=== PATIENT | female | born 1995 | race Caucasian/White ===

== ENCOUNTER 2020-05-13 08:01 | Inpatient (IN) | payer MEDICAID ==
[~2020-05-13] VITALS: Ht 154.9 cm; Wt 59.9 kg
[2020-05-13 10:26] LABS: BASOPHILS % 0.5 % (0.0-2.0); EOSINOPHILS % 0.3 % (0.0-5.0); HEMATOCRIT. 37.5 % (36.0-48.0); HEMOGLOBIN. 12.4 g/dL (12.0-16.0); LYMPHOCYTES % 17.2 % (20.0-50.0); MEAN CORPUSCULAR HEMOGLOBIN 28.4 pg (28.0-32.0); MEAN CORPUSCULAR VOLUME 85.5 fL (81.0-99.0); MEAN PLATELET VOLUME 9.7 fl (7.4-10.4); MONOCYTES % 4.7 % (2.0-8.0); NEUTROPHILS % 77.3 % (40.0-76.0); PLATELET 226 x1000/uL (130-400); RED BLOOD CELL COUNT 4.38 mill/uL (4.2-5.4)
[2020-05-13 10:30] LABS: CLARITY URINE CLEAR (CLEAR); COLOR URINE YELLOW (YELLOW); KETONES URINE NEGATIVE (NEGATIVE); LEUKOCYTE ESTERASE URINE TRACE (NEGATIVE); NITRITE URINE NEGATIVE (NEGATIVE); OCCULT BLOOD URINE TRACE (NEGATIVE); PROTEIN URINE 3+ (NEGATIVE); SPECIFIC GRAVITY URINE 1.022 (1.005-1.030)
[2020-05-13 10:33] LABS: CHLORIDE 110 mEq/L (98-107)
[2020-05-13 10:41] VITALS: BP 126/89
[2020-05-13 10:41] LABS: D-DIMER 3.8 mg/L FEU (<0.50); INR 1.4; PROTHROMBIN TIME 14.3 sec (9.6-11.0)
[2020-05-13] MEDS ORDERED: CARBOPROST TROMETHAMINE 250 MCG/ML AMPUL IM PRN (12:45)
[2020-05-13] MEDS ORDERED: METHYLERGONOVINE MALEATE 0.2 MG/ML IM PRN (12:45)
[2020-05-13] MEDS ORDERED: NALOXONE HCL 0.4 MG/ML 1ML VIAL IM PRN (12:45)
[2020-05-13] MEDS ORDERED: LIDOCAINE HCL 1% 20ML VIAL (Pyxis) INJ INFIL SCH (12:45)
[2020-05-13] MEDS ORDERED: MISOPROSTOL 200MCG TABLET VG SCH (12:45)
[2020-05-13] MEDS: LACTATED RINGERS 1,000 ML IV SCH ×3 (13:03→18:02)
[2020-05-13] MEDS: BUTORPHANOL TARTRATE 2 MG/ML VIAL IV PRN (13:09)
[2020-05-13] MEDS ORDERED: ROPIVACAINE HCL/PF EPIDURAL 200 ML EPI SCH (16:30)
[2020-05-13 19:44] LABS: HEPATITIS B SURFACE ANTIGEN NEGATIVE
[2020-05-14] MEDS: LACTATED RINGERS 1,000 ML IV SCH (01:17)
[2020-05-14] MEDS ORDERED: ACETAMINOPHEN 325MG TABLET PO NR (04:30)
[2020-05-14] MEDS: DEXT 5%/LR + PITOCIN 20UNITS/L 1,000 ML IV SCH ×2 (09:10→13:29)
[2020-05-14] MEDS: BUTORPHANOL TARTRATE 2 MG/ML VIAL IV PRN (12:44)
[2020-05-14] MEDS ORDERED: DIPHENHYDRAMINE 25MG CAPSULE PO PRN (13:45)
[2020-05-14] MEDS ORDERED: DEXT 5%/LR + PITOCIN 20UNITS/L 1,000 ML IV SCH (13:45)
[2020-05-14] MEDS ORDERED: BENZOCAINE/LANOLIN/ALOE VERA SPRAY TOP PRN (13:45)
[2020-05-14] MEDS ORDERED: OXYCODONE HCL/ACETAMINOPHEN 5/325MG TABLET PO PRN (13:45)
[2020-05-14] MEDS ORDERED: IBUPROFEN 400MG TABLET PO PRN (13:45)
[2020-05-14] MEDS ORDERED: GLYCERIN/WITCH HAZEL LEAF MEDICATED PAD TOP PRN (13:45)
[2020-05-14] MEDS ORDERED: MINERAL OIL 30ML BOTTLE TOP PRN (13:45)
[2020-05-14] MEDS: IBUPROFEN 800MG TABLET PO PRN ×2 (14:04→23:10)
[2020-05-14 15:00] VITALS: BP 112/80
[2020-05-14 16:00] VITALS: BP 119/78
[2020-05-14 19:30] VITALS: BP 124/86
[2020-05-14 21:12] LABS: *AMPHETAMINES SCREEN URINE NEGATIVE (NEGATIVE); *BARBITURATES SCREEN URINE NEGATIVE (NEGATIVE); *BENZODIAZEPINES SCREEN URINE NEGATIVE (NEGATIVE); *COCAINE SCREEN URINE NEGATIVE (NEGATIVE); METHADONE URINE SCREEN NEGATIVE (NEGATIVE)
[2020-05-14 21:13] LABS: CANNABINOID URINE SCREEN NEGATIVE (NEGATIVE); OPIATES URINE SCREEN NEGATIVE (NEGATIVE); PHENCYCLIDINE URINE SCREEN NEGATIVE (NEGATIVE)
[2020-05-14] MEDS: DOCUSATE SODIUM 100MG CAPSULE PO SCH (23:09)
[2020-05-14 23:20] VITALS: BP 119/79
[2020-05-15] MEDS ORDERED: DEXT 5%/LACTATED RINGERS 1,000 ML IV SCH (06:30)
[2020-05-15 06:40] LABS: BASOPHILS % 0.4 % (0.0-2.0); EOSINOPHILS % 0.1 % (0.0-5.0); HEMATOCRIT. 23.6 % (36.0-48.0); HEMOGLOBIN. 7.9 g/dL (12.0-16.0); LYMPHOCYTES % 12.7 % (20.0-50.0); MEAN CORPUSCULAR HEMOGLOBIN 28.6 pg (28.0-32.0); MEAN PLATELET VOLUME 9.1 fl (7.4-10.4); MONOCYTES % 2.1 % (2.0-8.0); NEUTROPHILS % 84.7 % (40.0-76.0); PLATELET 163 x1000/uL (130-400); RED BLOOD CELL COUNT 2.74 mill/uL (4.2-5.4); RED CELL DISTRIBUTION WIDTH 14.9 % (11.6-14.6)
[2020-05-15] MEDS: FERROUS SULFATE 325MG TABLET PO SCH ×3 (08:58→17:08)
[2020-05-15] MEDS: AMPICILLIN 2,000 MG in SODIUM CHLORIDE 0.9% 100 ML IV SCH ×3 (08:59→20:59)
[2020-05-15 09:00] VITALS: BP 115/63
[2020-05-15] MEDS ORDERED: PRENATAL VIT/FE FUMARATE/FA TABLET PO SCH (09:00)
[2020-05-15] MEDS: GENTAMICIN 120MG PREMIX 100 ML IV SCH ×2 (10:09→17:58)
[2020-05-15] MEDS: IBUPROFEN 800MG TABLET PO PRN (11:09)
[2020-05-15] MEDS ORDERED: LANOLIN OINT 7GM TUBE TOP PRN (15:15)
[2020-05-15 16:38] VITALS: BP 109/73
[2020-05-15 20:00] VITALS: BP 113/78
[2020-05-15] MEDS: DOCUSATE SODIUM 100MG CAPSULE PO SCH (20:54)
[2020-05-16] VITALS: BP 111/75
[2020-05-16] MEDS: IBUPROFEN 800MG TABLET PO PRN ×3 (01:40→02:44)
[2020-05-16] MEDS: GENTAMICIN 120MG PREMIX 100 ML IV SCH (02:02)
[2020-05-16] MEDS: AMPICILLIN 2,000 MG in SODIUM CHLORIDE 0.9% 100 ML IV SCH (03:08)
[2020-05-16 05:00] VITALS: BP 109/71
[2020-05-16 05:54] LABS: CHLORIDE 110 mEq/L (98-107)
[2020-05-16 06:02] LABS: GENTAMICIN RANDOM 4.3 ug/mL
[2020-05-16] MEDS ORDERED: IBUP-2030 PO (06:10)
[2020-05-16 08:00] VITALS: BP 112/73
== END 2020-05-16 12:04 | disposition home or self-care (01) | DRG 560 ==
LOC: 8 EST LDRP 08:01 → OBSVTOIN 17:05 → 8EST 05-14 15:00
PROVIDERS: ADMIT Obstetrics & Gynecology; ATTEND Obstetrics & Gynecology
PROC: 10E0XZZ Delivery of Products of Conception, External Approach (ICD-10-PCS; principal; 2020-05-14)
PROC: 3E0R3BZ Introduction of Anesthetic Agent into Spinal Canal, Percutaneous Approach (ICD-10-PCS; 2020-05-14)
PROC: 0DQP0ZZ Repair Rectum, Open Approach (ICD-10-PCS; 2020-05-14)
DX: O69.81X0 Labor and delivery complicated by cord around neck, without compression, not applicable or unspecified (principal); O70.3 Fourth degree perineal laceration during delivery; O77.0 Labor and delivery complicated by meconium in amniotic fluid; Z37.0 Single live birth; Z88.2 Allergy status to sulfonamides; Z3A.39 39 weeks gestation of pregnancy; Z79.899 Other long term (current) drug therapy
CPT/HCPCS: 36415; 80048; 80053; 80170; 80305; 81003; 84550; 85025; 85379; 85384; 86592; 86703; 86762; 86850; 86900; 87070; 87077; 87186; 87340; 99281; G0378; J0290; J0595; J1580; J2590; J2795; J3490; J7050; J7120; J7121